=== PATIENT | male | born 1960 | race Caucasian/White ===

== ENCOUNTER 2019-09-22 08:15 | Outpatient (CLI) | payer MEDICARE, OTHER ==
--- NOTE | 2019-09-22 09:05 | RAD ---
EXAM: XR Shoulder Rt 3 View STANDARD PROVIDED CLINICAL HISTORY: Shoulder pain COMPARISON: None FINDINGS: There is no evidence for fracture or other acute osseous abnormality. The glenohumeral relationship a ppears normal. Humeral head osteophyte formation is demonstrated. Subacromial space appears preserved. Visualized right lung field appears clear. Mineralization adjacent greater tuberosity may reflect calcific peritendinitis. IMPRESSION: 1. Advanced glenohumeral degenerative arthrosis. 2. Calcific peritendinitis, chronicity indeterminate.
== END 2019-09-22 08:16 | disposition home or self-care (01) ==
LOC: MADRAD 08:15
PROVIDERS: ATTEND Family Medicine
DX: M25.511 Pain in right shoulder (principal); G89.29 Other chronic pain; M19.011 Primary osteoarthritis, right shoulder; M77.8 Other enthesopathies, not elsewhere classified